=== PATIENT | male | born 1960 | race Caucasian/White ===

== ENCOUNTER 2021-04-17 09:43 | Outpatient (CLI) | payer MEDICARE, SELFPAY ==
--- NOTE | 2021-04-17 | EST_ITS ---
Patient Info Name: Yessenia Pereira Age: 61 years : 1960 Gender: Male Ht: 72 in Wt: 246 lbs BSA: 2.41 m2 Exam Date: 04/17/2021 11:17 AM Exam Location: [facility] Stress Patient Status: Outpatient Admit Date: 04/17/2021 Staff Ordering Physician: GRACIA PARTIDA MD Attending Provider: GRACIA PARTIDA MD Exercise Technologist: Kacie Pope RDCS Exercise Physician: Sree Amezquita MD Exam Type: CA stress test treadmill Study Info Indications I10 - Essential (primary) hypertension A treadmill exercise stress test was performed. Summary 1. Sub maximal workload as patient only reached 111 beats per minute which is 70% of maximum predicted heart rate for age. Mets 4.7. 2. Test was terminated due to marked hypertensive blood pressure response as well as leg pain from severe previous orthopedic issues with his right knee. 3. No chest pain or diagnostic ST segment abnormality seen at this sub maximal workload. Protocol: [facility] Stress ECG Details Stage: REST Duration (min): 1 min : 59 sec Speed (mph): 0.0 Grade (%): 0 HR (bpm): 60 SBP (mmHg): 159 DBP (mmHg): 77 METS: --- Stage: REST Duration (min): 9 min : 14 sec Speed (mph): 0.0 Grade (%): 0 HR (bpm): 76 SBP (mmHg): 159 DBP (mmHg): 77 METS: --- Stage: STAGE 1 Duration (min): 1 min : 0 sec Speed (mph): 1.7 Grade (%): 10 HR (bpm): 91 SBP (mmHg): 159 DBP (mmHg): 77 METS: --- Stage: STAGE 1 Duration (min): 2 min : 0 sec Speed (mph): 1.7 Grade (%): 10 HR (bpm): 103 SBP (mmHg): 159 DBP (mmHg): 77 METS: --- Stage: STAGE 1 Duration (min): 3 min : 0 sec Speed (mph): 1.7 Grade (%): 10 HR (bpm): 110 SBP (mmHg): 193 DBP (mmHg): 102 METS: --- Stage: STAGE 2 Duration (min): 0 min : 13 sec Speed (mph): 0.0 Grade (%): 0 HR (bpm): 110 SBP (mmHg): 193 DBP (mmHg): 102 METS: --- Stage: RECOVERY Duration (min): 0 min : 46 sec Speed (mph): 0.0 Grade (%): 0 HR (bpm): 91 SBP (mmHg): 193 DBP (mmHg): 102 METS: --- Stage: RECOVERY Duration (min): 1 min : 46 sec Speed (mph): 0.0 Grade (%): 0 HR (bpm): 69 SBP (mmHg): 238 DBP (mmHg): 93 METS: --- Stage: RECOVERY Duration (min): 2 min : 46 sec Speed (mph): 0.0 Grade (%): 0 HR (bpm): 62 SBP (mmHg): 238 DBP (mmHg): 93 METS: --- Stage: RECOVERY Duration (min): 3 min : 46 sec Speed (mph): 0.0 Grade (%): 0 HR (bpm): 67 SBP (mmHg): 200 DBP (mmHg): 71 METS: --- Stage: RECOVERY Duration (min): 4 min : 46 sec Speed (mph): 0.0 Grade (%): 0 HR (bpm): 70 SBP (mmHg): 200 DBP (mmHg): 71 METS: --- Stage: RECOVERY Duration (min): 5 min : 14 sec Speed (mph): 0.0 Grade (%): 0 HR (bpm): 72 SBP (mmHg): 195 DBP (mmHg): 74 METS: --- Rest HR: 76 bpm Peak HR: 111 bpm Rest Sys
== END 2021-04-17 09:44 | disposition home or self-care (01) ==
PROVIDERS: PCP Internal Medicine
DX: I25.10 Atherosclerotic heart disease of native coronary artery without angina pectoris (principal); I10 Essential (primary) hypertension; I25.5 Ischemic cardiomyopathy
CPT/HCPCS: 93017

== ENCOUNTER 2021-08-04 09:45 | Outpatient (RCR) | payer MEDICARE, SELFPAY ==
[2021-05-13 11:57] VITALS: PULSE 59
== END 2021-08-04 14:00 | disposition home or self-care (01) ==
LOC: ANHCPREHAB 09:45
PROVIDERS: PCP Internal Medicine
DX: I25.2 Old myocardial infarction (principal)
CPT/HCPCS: 93798

== ENCOUNTER 2025-08-09 01:05 | Day surgery (SDC) | payer MEDICARE, SELFPAY ==
--- OUTSIDE RECORDS SUMMARY | 2005-02-06 04:30 | XMS_ITS | Continuity of Care Document ---
Author Organization [facility] Address [address] [place] [address] Phone Care Team Providers Care Mail Superintendent Name Role Phone Tonja Gooden Unavailable Unavailable Advance Directives Directive Yes / No Effective Date File Name No Information Encounters Encounter Description Practice Location Reason(s) For Visit Diagnoses Date Provider Providers Copied on Encounter [facility], [address], [place], [place], [id number], [place] tel:[phone] [facility] No Information [address]. [address] , [address], [place], [address], [place]. tel:[phone] Family History Family Member Type Diagnosis Age At Onset No Information Payers Payer name Insurance type Covered constitution party ID Authoriza tion(s) No Information Social History Type Description Quantity Date Captured Comments Sex Male Smoking Status No Information Chief Complaint And Reason For Visit No Information Reason For Referral Reason For Referral No Information History Of Present Illness Encounter Date Complaint History Of Prese nt Illness No Information Functional Status Date Functional Assessmen t No Information Instructions Date Instruction Additional Infor mation No Information Assessments Type Assessment Date No Information Patient Care Teams Name Effective Dates (start - stop) Status Members No Information
[2025-08-01 12:53] VITALS: BMI 32.1
--- OUTSIDE RECORDS SUMMARY | 2025-08-09 01:08 | XMS_ITS | Clinical Summary ---
Author Organization [facility] Address [address] [place] [address] Care Team Providers Care Cone Worker Name Role Phone Unavailable Primary Care Provider Unavailabl e Source Comments [facility],non-owned Affiliates and Associated Physician Practices is amultiple site organization consisting of ambulatory clinics and hospital sitesin [place], [place], [place] and [place]. This disclosure is being madepursuant to the Care Everywhere program and may not contain all information available regarding this patient. Last updated 18.[facility] Social History Tobacco Use Types Packs/Day Years Used Date Smoking Tobacco: Never Assessed Comments Unknown Sex and Gender Information Value Date Recorded Sex Assigned at Not on file Legal Sex Female 4:00 PM CDT Gender Identity Not on file Sexual Orientation Not on file Plan of Treatment Health Maintenance Due Date Last Done Comments BONE DENSITY TESTING 1960 COLOGUARD (AGES 45-75) - COL ON CA SCREENING 1960 COLON MONITORING 1960 COLONOSCOPY - COLON CA SCREENING 1960 CT COLONOGRAPHY - COLON CA SCREENING 1960 Colorectal Cancer Screening 1960 FIT - COLON CA SCREENING 1960 FLEX SIG - COLON CA SCREENING 1960 LIPID TESTING 1960 MAMMOGRAM 1960 HEPATITIS C SCREENING 12/27/1976 DTAP/TDAP/TD VACCINES (1 - Tdap) 1978 PNEUMOCOCCAL VACCINE 50+ (1 of 1 - PCV) 2009 ZOSTER VACCINE (1 of 2) 2009 DEPRESSION SCREENING 10/25/2024 MEDICARE AWV CALENDAR YEAR 2024 COVID-19 VACCINE (1 - 2023-2 5 season) 2025 INFLUENZA VACCINE (#1) 2025 Respiratory Syncytial Virus (RSV) Vaccine Pt: or over 60 yrs (1 - 1-dose 75+ series) 2034 HEPATITIS B VACCINE Aged Out No longe r eligible based on patient's age to complete this topic HIB VACCINE Aged Out No longer eligi ble based on patient's age to complete this topic HPV VACCINE Aged Out No longer eligi ble based on patient's age to complete this topic MENINGOCOCCAL (Group B) VACC INE SHARED DECISION-MAKING Aged Out No longer eligibl e based on patient's age to complete this topic MENINGOCOCCAL GROUPS A/C/Y/W VACCINE Aged Out No longer eligible b ased on patient's age to complete this topic Insurance MANAGED MEDICARE ADV
--- OUTSIDE RECORDS SUMMARY | 2025-08-09 01:08 | XMS_ITS | Clinical Summary ---
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 Role Phone Alejandro Buckley MD Primary Care Provider [phone] Allergies No known active allergies Medications aspirin 81 mg chewable tablet Take 1 tablet (81 mg total) by mouth daily 90 tablet 2 09/22/20 21 Active Farxiga 5 mg tablet TAKE 1 TABLET(5 MG) BY MOUTH DAILY 90 tablet 1 02/11/20 24 Active Additional Information Patient taking differently:5 mg oral Daily,Taking every other day, Reported on 07/12/2025 levoFLOXacin (LEVAQUIN) 250 mg tablet Take 1 tablet (250 mg total) by mouth daily 90 tablet 3 08/31/20 24 Active carvediloL (COREG) 12.5 mg tablet Take 1 tablet (12.5 mg total) by mouth 2 (two) times a day with meals 180 tablet 3 07/12/20 25 Active telmisartan (MICARDIS) 80 mg tablet Take 1 tablet (80 mg total) by mouth daily 90 tablet 3 07/12/20 25 Active amLODIPine (NORVASC) 5 mg tablet TAKE 1 TABLET(5 MG) BY MOUTH DAILY 90 tablet 2 08/03/20 25 Active atorvastatin (LIPITOR) 80 mg tablet TAKE 1 TABLET(80 MG) BY MOUTH DAILY 90 tablet 2 08/03/20 25 Active telmisartan (MICARDIS) 80 mg tablet Take 1 tablet (80 mg total) by mouth daily 90 tablet 3 08/31/20 24 025 Discontinued(Re order) atorvastatin (LIPITOR) 80 mg tablet Take 1 tablet (80 mg total) by mouth daily 90 tablet 3 08/31/20 24 025 Discontinued(Re order) amLODIPine (NORVASC) 5 mg tablet Take 1 tablet (5 mg total) by mouth daily 90 tablet 3 08/31/20 24 025 Discontinued(Re order) carvediloL (COREG) 12.5 mg tablet TAKE 1 TABLET(12.5 MG) BY MOUTH TWICE DAILY WITH MEALS 180 tablet 3 05/02/20 25 025 Discontinued(Re order) amLODIPine (NORVASC) 5 mg tablet Take 1 tablet (5 mg total) by mouth daily 90 tablet 3 07/12/20 25 025 Discontinued atorvastatin (LIPITOR) 80 mg tablet Take 1 tablet (80 mg total) by mouth daily 90 tablet 3 07/12/20 25 025 Discontinued Active Problems Problem Noted Date Diagnosed Date Abnormal thyroid ultrasound 01/15/2025 Assessment & Plan (03/14/2025 10:08 AM CDT): Followed by Dr. Diaz Coronary artery disease invo lving paiute-shoshone coronary artery of paiute-shoshone heart without angina pectoris 03/03/2024 Assessment & Plan (03/14/2025 10:08 AM CDT): No chest pain. Assessment & Plan (03/03/2024 8:38 AM CDT): Patient currently on high-dose statin, beta-blockers, and antiplatelet therapy. Remains asymptomatic. Encouraged diet exercise and weight loss Elevated PSA 05/01/2021 Assessment & Plan (03/03/2024 8:37 AM CDT): See above discussion will repeat PSA in 6 months Hematuria 05/01/2021 Assessment & Plan (03/03/2024 8:37 AM CDT): Follows with Urology. Urology also assist in following the elevated PSA. PSA has been stable. This is felt to be at least in part due to a markedly enlarged prostate. Localized enlarged lymph nodes 05/01/2021 Asymptomatic microscopic hematuria 03/17/2021 Assessment & Plan (03/14/2025 10:08 AM CDT): Stable. Assessment & Plan (03/17/2021 8:10 AM CDT): Has upcoming appointment with Urology. Pre-diabetes 03/17/2021 Assessment & Plan (03/14/2025 10:08 AM CDT): A1c stable continue diet control. Assessment & Plan (03/03/2024 8:37 AM CDT): A1c is stable. He remains on Farxiga. Have encouraged him to try to diet exercise and lose weight. Assessment & Plan (03/17/2021 8:11 AM CDT): A1c 5.8% in hospital. 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 Is on anti-platelet therapy, high-dose statin, Telly inhibitor, and beta-malcolm. He is to be enrolled in cardiac rehab and has upcoming appointment with cardiology. Will repeat lipid panel in 6 weeks and follow blood pressure closely. Polyuria 02/26/2021 Essential hypertension 07/17/2020 Assessment & Plan (03/03/2024 8:37 AM CDT): BP at target by my exam continue medication for target directed therapy Assessment & Plan (03/17/2021 8:10 AM CDT): Blood pressure today is not at target but he has not taken his medications yet this morning he reports his blood pressures at home are excellent. Will continue to monitor. 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 Given Keflex as outpatient with minimal improvement. Wound worsened and taken to OR on 12/01/17 for I&D with retainment of hardware (DAIR) and flap coverage on 12/06/17. OR cultures revealed polymicrobial infection with E. Cloacae, pseudomonas, peptiniphilus asaccharolyticus (peptostreptococcus). D/c with 5 weeks of cefepime and flagyl starting 12/06/17 (developed neutropenia and leukopenia), stopped 01/13/18. Started on Cipro/augmentin but switched to levofloxacin due to diarrhea. Suffered from some tendon pain so dose decreased to 500 mg daily. Assessment & Plan (03/03/2024 8:38 AM CDT): Previously followed also by Infectious Disease. Long discussion with them several years ago indicated that he should continue the levofloxacin for an undetermined indefinite length of time. Over time the dosage has been reduced to its current dose of 250 mg daily which he is tolerating well. Assessment & Plan (03/17/2021 8:10 AM CDT): Review Dr. Calles's node and communication from Dr. Calles's office. Will start the levofloxacin 250 mg daily. He currently is asymptomatic. Assessment & Plan (03/12/2021 10:36 AM CDT): - Right knee is without concern for recurrent infection. He is tolerating antibiotics well but recently had left heel pain around Achilles tendon. He has some mild swelling to area now but no tenderness to palpation. No concern for tendon rupture but could have inflammation of tendons due to custodial flouroquinolones. Discussed risk vs benefit of custodial antibiotics. Given his polymicrobial infection with likely limited surgical options if infection were to recur it was decided to decrease levofloxacin to 250 mg PO daily to see if this improves his symptoms. If he has worsening pain to left leg ultrasound should be obtained. He he has signs/symptoms of Achilles tendon rupture levofloxacin will need to be discontinued. He requests his antibiotics be managed by his primary care physician (Dr. Alejandro Buckley) therefore I communicated ID recommendations to him. Patient will follow up with ID as needed with concerns for questions regarding custodial antibiotics Assessment & Plan (07/17/2020 11:12 AM CDT): On chronic levofloxacin, discussed with Dr Calles. To continue indefinitely at this time. 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 Encouraged to call surgical team for concerns with wound or remaining sutures. - Discussed rationale for treatment, culture results, treatment plan, length of therapy, risk of recurrent infection, as well as signs/symptoms of recurrent infection (including but not limited to fevers/chills/night sweats, worsening pain/erythema/edema, changes to surgical site,etc) and to contact ID with any concerns - F/u with ortho as scheduled on 07/27/18 - F/u with ID in 6 months Osteoarthritis of right knee 11/18/2017 Knee pain 06/01/2017 Encounters Date Type Department Care Team Description 07/12/2025 1:45 PM CDT Office Visit [facility] Surgery [address] [place] [id number] Tyler Diaz MD Thyroid nodule (Primary Dx) 07/12/2025 10:30 AM CDT Office Visit [facility] Cardiology [address] 8th [place] [address] [place] [id number] Fausto Scott MD Coronary artery disease involving paiute-shoshone coronary artery of paiute-shoshone heart without angina pectoris (Primary Dx); Essential hypertension 07/09/2025 Results Follow-Up [facility] Cardiology [address] [facility] 8th [place] [address] [place] [address] Fausto Scott MD Transthoracic Echo (TTE) Complete W Doppler/CF 07/05/2025 8:47 AM CDT - 07/05/2025 11:59 PM CDT Hospital Encounter [facility] Cardiac Diagnostic Lab [address]th [place] [address] Fausot Scott MD Coronary artery disease involving paiute-shoshone coronary artery of paiute[place]shoshone heart without angina pectoris Discharge Disposition: Discharge to home or self care 07/05/2025 7:40 AM CDT - 07/05/2025 11:59 PM CDT Hospital Encounter [facility] [address] [place], [place] [id number] Bebeto thyroiditis Discharge Disposition: Discharge to home or self care 07/05/2025 Telephone [facility] [address] [place] [address] [place] [phone] Alejandro Buckley MD Request For Order(s) 06/27/2025 Telephone [facility] [address] [place] [address] [place] [phone] Alejandro Buckley MD samples 06/06/2025 Telephone [facility] [address] [place] [address] [place] [phone] Alejandro Buckley MD Colonoscopy from Last 3 Months Immunizations Immunization Administration Dates Next Due Influenza, Quadrivalent, Hilary l Culture-based MDCK, Preservative Free, Antibiotic Free, Intramuscular 07/10/2023,07/30/2022 Influenza, Quadrivalent, Spl it, Preservative Free, Intramuscular 07/06/2020 Influenza, Trivalent, High D ose, Split, Preservative Free, Intramuscular 07/10/2024 Influenza, Trivalent, IM (MDV) 07/12/2021 Influenza, Trivalent, Preservative Free, Intramu scular 09/06/2016 Moderna SARS-CoV-2 Monovalent Vaccination (12+ Y RS) 12/21/2020 Pfizer SARS-CoV-2 Monovalent Vaccination (12+ Yrs) PURPLE 07/15/2021 Pneumococcal Conjugate Pcv20 07/03/2022 RSV Vaccine, Pref, Recombina nt, Subunit, Adjuvanted, PF, IM (Arexvy) 08/10/2023 ZOSTER Recombinant 11/04/2022,06/17/2022 Surgical History Surgery Date Site/Laterality Comments REPLACEMENT TOTAL KNEE 10/28/2017 Right COLONOSCOPY PERIPHERALLY INSERTED CENTRAL CATHETER INSERTION ANKLE INCISION AND DRAINAGE Right knee debridement x2 SKIN GRAFT FULL THICKNESS LEG -12/2018 Right KNEE ARTHROSCOPY W/ MENISCAL REPAIR 10/25/1978 - 10/24/1979 Right CARDIAC SURGERY Medical History Medical History Date Comments Arthritis Hypertension has not started 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 Swab x2 done 08/21/2019 & 09/08/2019-->negative Urinary frequency Anxiety no meds Depression no meds Family History Medical History Relation Name Comments Hypertension Father Family history of hypertension - (Added by TW Conv) Lung disease Father Lung trouble - (Added by TW Conv) Cancer Mother Family history of malignant neoplasm - (Added by TW Conv) Relation Name Status Comments Father Mother Social History Tobacco Use Types Packs/Day Years Used Date Smoking Tobacco: Former Cigarettes 0.3 31.8 S tarted: 1993 Passive Smoke Exposure: Past Smokeless Tobacco: Never Tobacco Cessation:Counseling Given: Not Answered Comments:off and on-stopped for awhile then restared in 10/2018 Alcohol Use Standard Drinks/Week Comments Yes 0 (1 standard drink = 0.6 oz pur e alcohol) 2 drinks/year Sex and Gender Information Value Date Recorded Sex Assigned at Not on file 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 Gender Identity Not on file Sexual Orientation Not on file Obstetrics History Last Filed Vital Signs Vital Sign Reading Time Taken Comments Blood Pressure 114/67 07/12/2025 1:17 PM CDT Pulse 83 07/12/2025 1:17 PM CDT Temperature 36.4 C (97.6 F) 07/12/2025 1:17 PM CDT Respiratory Rate 18 07/12/2025 1:17 PM CDT Oxygen Saturation 99% 07/12/2025 1:17 PM CDT Inhaled Oxygen Concentration - - Weight 109.5 kg (241 lb 8 oz) 07/12/2025 1:17 PM CDT Height 180.3 cm (5' 11) 07/12/2025 10:23 AM CDT Body Mass Index 33.68 07/12/2025 10:23 AM CDT Plan of Treatment Health Maintenance Due Date Last Done Comments Depression Screening 1960 Hepatitis C Screening 1960 DTaP/Tdap/Td Vaccine (1 - Tdap) 1970 Hepatitis B Screening 1977 Fall Risk Assessment 03/07/2022 03/07/2021 Abdominal Aortic Aneurysm (AAA) Screen 01/02/2024 Well Visit 65+ 01/02/2024 07/17/2020 Covid-19 Vaccine ( season) 2025 07/25/2024, 07/27/2023, 02/09/2022, Additional history exists Influenza Vaccine (#1) 2025 , 07/10/2023, 07/30/2022, Additional history exists Prostate Cancer Screening-PSA 08/07/2027 08/07/2025, 08/17/2024, 02/17/2024, Additional history exists Colon Cancer Screening-Colonoscopy 07/18/2029 Postponed from 1960 (Not appropriate for this patient at this time) Pneumococcal vaccine 65+ Completed 07/03/2022 Zoster Vaccine Completed 11/04/2022, 06/17/2022 Medical Devices Implanted Type Area Diesel Service Technician Device Identifier Shelf Expiration Date Model / Serial / Lot [employer] [id number] Stent Coronary Drug Eluting Orsiro 3.0mm 35cm - [id number] Implanted:Qty : 1 on 03/06/2021 by Stephanie England MD at [facility] Stent Left: Coronary [employer] 11/27/2022 [id number] / / [id number] [employer] [id number] Angio-Seal Evolution 8fr .038in Guidewire Bypass Tube Suture - [id number] - [id number] Implanted:Qty : 1 on 03/06/2021 by Stephanie England MD at [facility] Stent Terrajoule Alison 11/24/2021 [id number] / [id number] / [id number] Procedures Procedure Name Priority Date/Time Associated Diagnosis Comments PSA SCREEN Routine 08/07/2025 9:56 AM CDT COMPREHENSIVE METABOLIC PANEL Routine 08/07/2025 9:56 AM CDT LIPID PANEL Routine 08/07/2025 9:56 AM CDT URINALYSIS AND REFLEX TO MICROSCOPIC Routine 08/07/2025 9:56 AM CDT TSH Routine 08/07/2025 9:56 AM CDT CBC WITH AUTO DIFFERENTIAL Routine 08/07/2025 9:56 AM CDT Health care maintenance TRANSTHORACIC ECHO (TTE) COMPLETE W DOPPLER/CF W CONTRAST Routine 07/05/2025 10:38 AM CDT Coronary artery disease involving paiute-shoshone coronary artery of pai[place]-shoshone heart without angina pectoris CT CHEST W CONTRAST Schedule Routine, Read Routine (OP Routine) 07/05/2025 8:38 AM CDT Bebeto thyroiditis from Last 3 Months Results * PSA screen (08/07/2025 9:56 AM CDT) PSA 3.53 < OR = 4.00 ng/mL [facility] Comment: The total PSA value from this assay system is standardized against the WHO standard. The test result will be approximately 20% lower when compared to the equimolar-standardized total PSA ([place]). Comparison of serial PSA results should be interpreted with this fact in mind. This test was performed using the Siemens chemiluminescent method. Values obtained from different assay methods cannot be used interchangeably. PSA levels, regardless of value, should not be interpreted as absolute evidence of the presence or absence of disease. 08/07/2025 9:56 AM CDT 08/07/2025 9:58 AM CDT Narrative [facility] - 08/08/2025 4:06 AM CDT FASTING:YES FASTING: YES Alejandro Buckley MD LAB BLOOD ORDERABLES Final Re sult Performing Organization Address [facility] Co de Phone Number [facility] [address] [place] [address] * (ABNORMAL) Urinalysis reflex to microscopic (08/07/2025 9:56 AM CDT) Color, ur YELLOW YELLOW [facility] Appearance, ur CLEAR CLEAR [facility] Specific gravity 1.025 1.001 - 1.035 [facility] pH, ur 5.5 5.0 - 8.0 [facility] Glucose, ur 3+(A) NEGATIVE [facility] Bilirubin, ur NEGATIVE NEGATIVE [facility] Ketones, ur NEGATIVE NEGATIVE [facility] Blood, ur NEGATIVE NEGATIVE [facility] Protein, ur, quant NEGATIVE NEGATIVE [facility] Nitrites, ur NEGATIVE NEGATIVE [facility] Leukocyte esterase, ur NEGATIVE NEGATIVE [facility] 08/07/2025 9:56 AM CDT 08/07/2025 9:58 AM CDT Narrative [facility] - 08/08/2025 4:06 AM CDT FASTING:YES FASTING: YES Alejandro Buckley MD LAB URINE ORDERABLES Final Re sult Performing Organization Address [facility] de Phone Number [facility] [address] [place] [address] * (ABNORMAL) CBC with auto differential (08/07/2025 9:56 AM CDT) WBC 7.7 3.8 - 10.8 Thousand/u L [facility] RBC, POC 4.90 4.20 - 5.80 Million/uL [facility] Hgb 13.0(L) 13.2 - 17.1 g/dL [facility] Hct 42.1 38.5 - 50.0 % [facility] MCV 85.9 80.0 - 100.0 fL [facility] MCH 26.5(L) 27.0 - 33.0 pg [facility] MCHC 30.9(L) 32.0 - 36.0 g/dL [facility] Comment: For adults, a slight decrease in the calculated MCHC value (in the range of 30 to 32 g/dL) is most likely not clinically significant; however, it should be interpreted with caution in correlation with other red cell parameters and the patient's clinical condition. Rdw 13.7 11.0 - 15.0 % [facility] Platelets 181 140 - 400 Thousand/u L [facility] MPV 12.3 7.5 - 12.5 fL [facility] Neutrophils, abs 4,959 1,500 - 7,800 cells/uL [facility] Lymphocytes, abs 2,241 850 - 3,900 cells/uL [facility] Monocyte abs 393 200 - 950 cells/uL [facility] Eosinophils, abs 77 15 - 500 cells/uL [facility] Basophils, abs 31 0 - 200 cells/uL [facility] Neutrophils 64.4 % [facility] Lymphocyte pct 29.1 % [facility] Monocytes 5.1 % [facility] Eosinophils 1.0 % [facility] Basophils 0.4 % [facility] Blood 08/07/2025 9:56 AM CDT 08/07/2025 9:58 AM CDT Narrative [facility] - 08/08/2025 4:06 AM CDT FASTING:YES FASTING: YES us Alejandro Buckley MD LAB BLOOD ORDERABLES Final Re sult [facility] [address] [place] [address] * TSH (08/07/2025 9:56 AM CDT) TSH 0.70 0.40 - 4.50 mIU/L [facility] 08/07/2025 9:56 AM CDT 08/07/2025 9:58 AM CDT Narrative [employer] - 08/08/2025 4:06 AM CDT FASTING:YES FASTING: YES us Alejandro Buckley MD LAB BLOOD ORDERABLES Final Re sult Performing Organization Address [facility] Co de Phone Number [facility] [address] [place] [address] * (ABNORMAL) Lipid panel (08/07/2025 9:56 AM CDT) [facility] Cholesterol 73 <200 mg/dL [employer] [facility] HDL 34(L) > OR = 40 mg/dL [facility] Triglycerides 80 <150 mg/dL [facility] LDL 23 mg/dL (calc) [facility] Comment: Reference range: <100 Desirable range <100 mg/dL for primary prevention; <70 mg/dL for patients with CHD or diabetic patients with > or = 2 CHD risk factors. LDL-C is now calculated using the Jass calculation, which is a validated novel method providing better accuracy than the Friedewald equation in the estimation of LDL-C. Frank ANSARI et al. ANTHONY. 2013;310(19): 2830-7205 (http://education.[employer]/faq/UZO814) Chol/HDL ratio 2.1 <5.0 (calc) [facility] Non-HDL, (LDL+VLDL) 39 <130 mg/dL (calc) [facility] Comment: For patients with diabetes plus 1 major ASCVD risk factor, treating to a non-HDL-C goal of <100 mg/dL (LDL-C of <70 mg/dL) is considered a therapeutic option. 08/07/2025 9:56 AM CDT 08/07/2025 9:58 AM CDT Narrative [facility] - 08/08/2025 4:06 AM CDT FASTING:YES FASTING: YES us Alejandro Buckley MD LAB BLOOD ORDERABLES Final Re sult Performing Organization Address [facility]/ZIP Co de Phone Number [facility] [address] [place] [address] * (ABNORMAL) Comprehensive metabolic panel (08/07/2025 9:56 AM CDT) Glucose 135(H) 65 - 99 mg/dL [facility] Comment: Fasting reference interval For someone without known diabetes, a glucose value >125 mg/dL indicates that they may have diabetes and this should be confirmed with a follow-up test. BUN 16 7 - 25 mg/dL [facility] Creatinine 0.99 0.70 - 1.35 mg/dL [facility] eGFR 84 > OR = 60 mL/min/1.7 3m2 [facility] BUN/creat ratio SEE NOTE: 6 - 22 (calc) [facility] Comment: Not Reported: BUN and Creatinine are within reference range. Sodium 143 135 - 146 mmol/L [facility] Potassium, pl 3.9 3.5 - 5.3 mmol/L [facility] Chloride 108 98 - 110 mmol/L [facility] CO2 28 20 - 32 mmol/L [facility] Calcium 9.1 8.6 - 10.3 mg/dL [facility] Protein, sr 6.4 6.1 - 8.1 g/dL [facility] Albumin 3.9 3.6 - 5.1 g/dL [facility] GLOBULIN 2.5 1.9 - 3.7 g/dL (calc) [facility] Alb/glob ratio 1.6 1.0 - 2.5 (calc) [facility] Bilirubin, total 0.9 0.2 - 1.2 mg/dL [facility] Alk phos 103 35 - 144 U/L [email or web address] AST 11 10 - 35 U/L [facility] ALT (SGPT) 13 9 - 46 U/L [facility] 08/07/2025 9:56 AM CDT 08/07/2025 9:58 AM CDT Narrative [facility] - 08/08/2025 4:06 AM CDT FASTING:YES FASTING: YES Alejandro Buckley MD LAB BLOOD ORDERABLES Final Re sult [facility] [address] [place] [address] * TRANSTHORACIC ECHO (TTE) COMPLETE W DOPPLER/CF W CONTRAST (07/05/2025 10:38 AM CDT) EF Mod BP 60 % CONS SCIMAGE Anatomical Region Laterality Modality Ultrasound 07/05/2025 9:49 AM CDT Narrative 07/06/2025 5:44 PM CDT LOCATED WITHIN [facility] [place] [address] Transthoracic Echocardiographic Report Patient Name: YESSENIA LAWTON R : 1960 (65y 6m) Sex: M Study Date: 07/05/2025 09:49:22 AM Ht(Inch): 69 Wt(Lb): 242.95 BSA: 2.32 Adult Educator: Sherine Jean [facility] Location: LOCATED WITHIN [facility] Order Provider: FAUSTO SCOTT Heart Rate: 61 BMI: 35.87 BP: 138 / 61 Ref Provider: FAUSTO SCOTT Fellow: Jassi Estevez MD PROCEDURES: Echocardiographic Report: Transthoracic complete echo with strain imaging and contrast, 2D, spectral and tissue Doppler, color flow Doppler, M-mode. Contrast: Contrast Enhancement was Employed: Due to suboptimal image quality with inadequate visualization of at least 2 of 16 LV wall segments in any view after initial imaging. Perflutren contrast was administered using the volume necessary to obtain adequate images. 0.8 ml Optison Administered, (2.2 ml wasted). INDICATIONS: I25.10 Atherosclerotic heart disease of pai[place]-shoshone coronary artery without angina pectoris. CONCLUSIONS: 1. Normal left ventricular size based on volume index. Normal LV wall thickness. Normal left ventricular systolic function. The Ejection Fraction (Lorenzo's) is measured at 60 %. Grade I diastolic dysfunction (normal LA pressure). The average global longitudinal strain is abnormal. A false tendon is seen in the left ventricle, a normal finding. 2. Resting Segmental Wall Motion Analysis: Total wall motion score is 1.12. There is hypokinesis of the mid anteroseptal wall. There is hypokinesis of the apical septal wall. The remaining left ventricular segments demonstrate normal wall motion. 3. Mildly dilated left atrium. 4. There is no significant valvular heart disease. COMPARISONS: No change compared to prior study on: 10/07/2022. ATTESTATION: I have personally reviewed and interpreted this study without fellow or resident. Fellow that participated in the exam is Jassi Estevez MD. DISCLAIMER: The study images and the final report will be retained in the patient chart by the [facility] for the legally required time period. This chart constitutes the legal record of any testing performed. FINDINGS: Left Ventricle: Normal left ventricular size based on volume index. Normal LV wall thickness. Normal left ventricular systolic function. The Ejection Fraction (Lorenzo's) is measured at 60 %. Grade I diastolic dysfunction (normal LA pressure). The average global longitudinal strain is abnormal. The LV global strain is: -15.6 %. A false tendon is seen in the left ventricle, a normal finding. Resting Segmental Wall Motion Analysis: Total wall motion score is 1.12. There is hypokinesis of the mid anteroseptal wall. There is hypokinesis of the apical septal wall. The remaining left ventricular segments demonstrate normal wall motion. Right Ventricle: Normal right ventricular size. Normal right ventricular systolic function. Left Atrium: Mildly dilated left atrium. Right Atrium: The right atrium is normal in size. Atrial Septum: Normal interatrial septum. Mitral Valve: Normal mitral valve structure. Trace mitral valve regurgitation. No stenosis present. Aortic Valve: Trileaflet aortic valve. Mildly thickened aortic valve leaflets. No aortic regurgitation. No aortic valve stenosis. Tricuspid Valve: Normal tricuspid valve structure. Trace tricuspid regurgitation. No tricuspid valve stenosis. Pulmonic Valve: The pulmonic valve is not well visualized due to poor acoustic windows. Mild pulmonic regurgitation. No pulmonic valve stenosis present. Pericardium: Physiologic pericardial effusion. Aorta: Normal aortic root size when indexed. The ascending aorta is normal in size when indexed. IVC: The IVC was <2.1 cm and collapsibility >50%. (est. RA pressure 0-5 mmHg). PASP: Unable to determine PASP due to inadequate TR jet. Rhythm: Occasional atrial premature contractions noted during the exam. MEASUREMENTS: 2D/MM Value Range Doppler Value Range LVIDd 2D 5.64 cm [ 4.20 - 5.80 ] AV VTI 33.2 cm LVIDs 2D 3.86 cm [ 2.50 - 4.00 ] LVOT VTI 24.7 cm IVSd 2D 0.97 cm [ 0.60 - 1.00 ] FARHAN VTI 2.18 cm2 LVPWd 2D 1.00 cm [ 0.60 - 1.00 ] LVOT/AV VTI 0.74 - Dimensionless index (DVI) LV Thickness Ratio 1.0 MV E Peak Semaj 0.7 m/s [ 0.6 - 1.3 ] RWT 0.35 MV A Peak Semaj 0.9 m/s [ 1.0 - 1.2 ] EDV Mod BP 169.00 ml [ 62.00 - 150.00 ] MV E/A 0.8 ratio [ 0.8 - 1.5 ] LV EDV Index 72.96 ml/m2 MV VTI 32.4 cm ESV Mod BP 67.00 ml [ 21.00 - 61.00 ] Med E` Semaj 5.9 cm/sec [ 8.0 - 25.0 ] EF Mod BP 60 % [ 52 - 72 ] Lat E` Semaj 8.8 cm/sec [ 10.0 - 25.0 ] LV GLS -15.6 % [ -25.0 - -18.0 ] Average E/E` 9.52 LA Volume BP 82.06 ml RV S` 10.25 cm/sec LA Volume Index 35.43 ml/m2 [ 16.00 - 34.00 ] RV Base Dimen 2D 3.9 cm [ 2.5 - 4.2 ] TAPSE 2.17 cm [ 1.71 - 5.00 ] RA Volume 46.19 ml RA Volume Index 19.94 ml/m2 IVC Diam 2.04 cm IVC Collapse 51 % AoR Diam 2D 3.50 cm [ 3.10 - 3.70 ] Ao Root Index 1.51 cm/m2 [ 1.00 - 2.00 ] Asc Ao Diam 2D 3.47 cm Asc Ao Index 1.50 cm/m2 Electronically Signed By: Columba Garcia MD 07/06/2025 5:43:23 PM CDT CC: Fausto Scott MD Wall Motion Analysis - Resting Procedure Note De oClumba Enamorado MD - 07/06/2025 LOCATED WITHIN [facility] [place] [place] [address] Transthoracic Echocardiographic Report Patient Name: YESSENIA LAWTON R : 1960 (65y 6m) Sex: M Study Date: 07/05/2025 09:49:22 AM Ht(Inch): 69 Wt(Lb): 242.95 BSA: 2.32 Adult Educator: Sherine Jean [facility] Location: LOCATED WITHIN [facility] Order Provider:FAUSTO SCOTT Heart Rate: 61 BMI: 35.87 BP: 138 / 61 Ref Provider: FAUSTO SCOTT Fellow: Jassi Estevez MD PROCEDURES: Echocardiographic Report: Transthoracic complete echo with strain imagingand contrast, 2D, spectral and tissue Doppler, color flow Doppler, M-mode. Contrast: Contrast Enhancement was Employed: Due to suboptimal imagequality with inadequate visualization of at least 2 of 16 LV wall segments in any viewafter initial imaging. Perflutren contrast was administered using the volume necessaryto obtain adequate images. 0.8 ml Optison Administered, (2.2 ml wasted). 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 CONCLUSIONS: 1. Normal left ventricular size based on volume index. Normal LV wallthickness. Normal left ventricular systolic function. The Ejection Fraction (Lorenzo's) ismeasured at 60 %. Grade I diastolic dysfunction (normal LA pressure). The average globallongitudinal strain is abnormal. A false tendon is seen in the left ventricle, a normalfinding. 2. Resting Segmental Wall Motion Analysis: Total wall motion score is1.12. There is hypokinesis of the mid anteroseptal wall. There is hypokinesis of theapical septal wall. The remaining left ventricular segments demonstrate normal wall motion. 3. Mildly dilated left atrium. 4. There is no significant valvular heart disease. COMPARISONS: No change compared to prior study on: 10/07/2022. ATTESTATION: I have personally reviewed and interpreted this study without fellow orresident. Fellow that participated in the exam is Jassi Estevez MD. DISCLAIMER: The study images and the final report will be retained in the patientchart by the Echo Laboratory for the legally required time period. This chart constitutesthe legal record of any testing performed. FINDINGS: Left Ventricle: Normal left ventricular size based on volume index. NormalLV wall thickness. Normal left ventricular systolic function. The EjectionFraction (Lorenzo's) is measured at 60 %. Grade I diastolic dysfunction (normal LA pressure).The average global longitudinal strain is abnormal. The LV global strain is: -15.6 %.A false tendon is seen in the left ventricle, a normal finding. Resting Segmental Wall Motion Analysis: Total wall motion score is 1.12.There is hypokinesis of the mid anteroseptal wall. There is hypokinesis of theapical septal wall. The remaining left ventricular segments demonstrate normal wall motion. Right Ventricle: Normal right ventricular size. Normal right ventricularsystolic function. Left Atrium: Mildly dilated left atrium. Right Atrium: The right atrium is normal in size. Atrial Septum: Normal interatrial septum. Mitral Valve: Normal mitral valve structure. Trace mitral valveregurgitation. No stenosis present. Aortic Valve: Trileaflet aortic valve. Mildly thickened aortic valveleaflets. No aortic regurgitation. No aortic valve stenosis. Tricuspid Valve: Normal tricuspid valve structure. Trace tricuspidregurgitation. No tricuspid valve stenosis. Pulmonic Valve: The pulmonic valve is not well visualized due to pooracoustic windows. Mild pulmonic regurgitation. No pulmonic valve stenosis present. Pericardium: Physiologic pericardial effusion. Aorta: Normal aortic root size when indexed. The ascending aorta is normalin size when indexed. IVC: The IVC was <2.1 cm and collapsibility >50%. (est. RA pressure 0-5mmHg). PASP: Unable to determine PASP due to inadequate TR jet. Rhythm: Occasional atrial premature contractions noted during the exam. MEASUREMENTS: 2D/MM Value Range DopplerValue Range LVIDd 2D 5.64 cm [ 4.20 - 5.80 ] AV VTI33.2 cm LVIDs 2D 3.86 cm [ 2.50 - 4.00 ] LVOT VTI24.7 cm IVSd 2D 0.97 cm [ 0.60 - 1.00 ] FARHAN VTI2.18 cm2 LVPWd 2D 1.00 cm [ 0.60 - 1.00 ] LVOT/AV VTI0.74 - Dimensionless index (DVI) LV Thickness Ratio 1.0 MV E Peak Vel0.7 m/s [ 0.6 - 1.3 ] RWT 0.35 MV A Peak Vel0.9 m/s [ 1.0 - 1.2 ] EDV Mod BP 169.00 ml [ 62.00 - 150.00 ] MV E/A0.8 ratio [ 0.8 - 1.5 ] LV EDV Index 72.96 ml/m2 MV VTI32.4 cm ESV Mod BP 67.00 ml [ 21.00 - 61.00 ] Med E` Vel5.9 cm/sec [ 8.0 - 25.0 ] EF Mod BP 60 % [ 52 - 72 ] Lat E` Vel8.8 cm/sec [ 10.0 - 25.0 ] LV GLS -15.6 % [ -25.0 - -18.0 ] Average E/E`9.52 LA Volume BP 82.06 ml RV S`10.25 cm/sec LA Volume Index 35.43 ml/m2 [ 16.00 - 34.00 ] RV Base Dimen 2D 3.9 cm [ 2.5 - 4.2 ] TAPSE 2.17 cm [ 1.71 - 5.00 ] RA Pklovi16.19 ml RA Volume Index19.94 ml/m2 IVC Diam2.04 cm IVC Collapse 51 % AoR Diam 2D 3.50 cm [ 3.10 - 3.70 ] Ao Root Index 1.51 cm/m2 [ 1.00 - 2.00 ] Asc Ao Diam 2D3.47 cm Asc Ao Index1.50 cm/m2 Electronically Signed By: Columba Garcia MD 07/06/2025 5:43:23 PM CDT CC: Fausto Scott MD Wall Motion Analysis - Resting us Fausto Scott MD CV ECHO PROCEDURES Final Resu lt * CT Chest W Contrast (07/05/2025 8:38 AM CDT) Anatomical Region Laterality Modality Body N/A Computed Tomogra phy 07/05/2025 9:30 AM CDT Impressions 07/05/2025 9:30 AM CDT 1. No evidence of metastatic disease in the chest. 2. No significant interval change in appearance of an enlarged multinodular thyroid, though direct comparison is limited by noncontrast technique on the prior chest CT. Electronically signed by: Abdelrahman Cruz M.D. Narrative 07/05/2025 9:30 AM CDT EXAMINATION: Computed tomography of the chest with intravenous contrast HISTORY: Thyroid cancer; monitor. TECHNIQUE: Transaxial computed tomographic images of the chest were obtained with intravenous contrast according to the standard protocol after the administration of 90 mL Opti-Ray 350 intravenous contrast. COMPARISON: Chest CT dated 11/14/2024 FINDINGS: There is no consolidation, pleural effusion, or pneumothorax. No suspicious pulmonary nodule is identified. The heart size is normal without pericardial effusion. The thoracic aorta is normal in caliber. There is a redemonstrated enlarged multinodular thyroid, overall similar in appearance from prior though direct comparison is limited by noncontrast technique on the prior CT; the largest thyroid nodule in the left hemithyroid measures 2.4 cm. No pathologically enlarged thoracic lymph node is identified. Within the upper abdomen, the imaged portions of the liver, gallbladder, spleen, pancreas, and adrenal glands are normal. No aggressive osseous lesion is identified. Procedure Note Abdelrahman Cruz MD PhD - 07/05/2025 EXAMINATION: Computed tomography of the chest with intravenous contrast HISTORY: Thyroid cancer; monitor. TECHNIQUE: Transaxial computed tomographic images of the chest were obtained with intravenous contrast according to the standard protocol after the administration of 90 mL Opti-Ray 350 intravenous contrast. COMPARISON: Chest CT dated 11/14/2024 FINDINGS: There is no consolidation, pleural effusion, or pneumothorax. No suspicious pulmonary nodule is identified. The heart size is normal without pericardial effusion. The thoracic aorta is normal in caliber. There is a redemonstrated enlarged multinodular thyroid, overall similar in appearance from prior though direct comparison is limited by noncontrast technique on the prior CT; the largest thyroid nodule in the left hemithyroid measures 2.4 cm. No pathologically enlarged thoracic lymph node is identified. Within the upper abdomen, the imaged portions of the liver, gallbladder, spleen, pancreas, and adrenal glands are normal. No aggressive osseous lesion is identified. IMPRESSION: 1. No evidence of metastatic disease in the chest. 2. No significant interval change in appearance of an enlarged multinodular thyroid, though direct comparison is limited by noncontrast technique on the prior chest CT. Electronically signed by: Abdelrahman Cruz M.D. Tyler Diaz MD IM CT PROCEDURES Final Result from Last 3 Months Insurance [facility] AETNA SIGNATURE [facility] [employer] ADVANTAGE [place] [id number] UHC MEDICARE ADVANTAGE UHC MEDICARE ADVANTAGE Advance Directives For more information, please contact: [phone] * Full Code (Latest Code Status on File) Date Activated Date Inactivated Comments 03/06/2021 8:05 AM 03/07/2021 5:03 PM Care Teams Radial Arm Saw Operator Relationship Specialty Start Date End Date Alejandro Buckley MD PCP - General Internal Medicine 07/17/20
--- OUTSIDE RECORDS SUMMARY | 2025-08-09 01:08 | XMS_ITS | Encounter Summary ---
Author Organization [facility] Healthcare Address [address] [place] [address] Care Team Providers Care New Car Make Ready Mechanic Name Role Phone Alejandro Buckley MD Primary Care Provider [phone] Encounter Details Date Type Department Care Team (Late st Contact Info) Description 09/25/2021 Telephone [facility] Radiology [address] [place] [address] [place], [address] [place] [address] Social History Tobacco Use Types Packs/Day Years Used Date Smoking Tobacco: Former Cigarettes 0.3 31.8 S tarted: 1993 Smokeless Tobacco: Never Comments:off and on-stopped for awhile then restared in 10/2018 Alcohol Use Standard Drinks/Week Comments Yes 0 (1 standard drink = 0.6 oz pur e alcohol) 2 drinks/year Sex and Gender Information Value Date Recorded Sex Assigned at Not on file Legal Sex Male 11:52 AM RHIT Gender Identity Not on file Sexual Orientation Not on file documented as of this encounter Plan of Treatment Not on file documented as of this encounter Visit Diagnoses Not on filedocumented in this encounter Care Teams New Car Make Ready Mechanic Relationship Specialty Start Date End Date Alejandro Buckley MD PCP - General Internal Medicine 07/17/20 documented as of this encounter
--- OUTSIDE RECORDS SUMMARY | 2025-08-09 01:08 | XMS_ITS | Encounter Summary ---
Author Organization [facility] Address [address] [place] [address] Care Team Providers Care Aerospace Quality Engineer Name Role Phone Unavailable Primary Care Provider Unavailabl e Encounter Details Date Type Department Care Team (Late st Contact Info) Description 06/23/2023 Lab Requisition [facility] - DermPath Lab [address] [place] [id number] Alton Lopez [place] [address] Social History Tobacco Use Types Packs/Day Years Used Date Smoking Tobacco: Never Assessed Comments Unknown Sex and Gender Information Value Date Recorded Sex Assigned at Not on file Legal Sex Female 4:00 PM CDT Gender Identity Not on file Sexual Orientation Not on file documented as of this encounter Plan of Treatment Not on file documented as of this encounter Procedures Procedure Name Priority Date/Time Associated Diagnosis Comments DERMATOPATHOLOGY Routine 06/22/2023 12:0 0 AM CDT documented in this encounter Results * DERMATOPATHOLOGY (06/22/2023 12:00 AM CDT) Case Report Dermatopathology Report Case: [id number] Authorizing Provider: Alton Lopez MD Collected: 06/22/2023 12:00 AM Ordering Location: [facility] DermPath Lab Received: 06/24/2023 07:20 AM Pathologist: Vee Mejía MD Specimens: A) - Skin, right sup deltoid B) - Skin, right upper lat back behind shoulder 3:30 PM CDT DERMATOPATHOLOGY LABORATORY Final Diagnosis Specimen A. SKIN, right sup deltoid: BENIGN VERRUCOUS KERATOSIS, INFLAMED (L82.1) Specimen B. SKIN, right upper lat back behind shoulder: BENIGN VERRUCOUS KERATOSIS, INFLAMED (L82.1) 3 3:30 PM CDT DERMATOPATHOLOGY LABORATORY at 1530 CDT Clinical History A-B: R/O SCC 3:30 PM CDT DERMATOPATHOLOGY LABORATORY Gross Description Specimen A: Received is one formalin filled container labeled with the patient's name and designated right sup deltoid. The specimen consists of a shave biopsy measuring [id number] mm. Jar 0. Specimen B: Received is one formalin filled container labeled with the patient's name and designated right upper lat back behind shoulder. The specimen consists of a shave biopsy measuring [id number] mm. Jar 0. 3:30 PM CDT DERMATOPATHOLOGY LABORATORY Microscopic Description Specimen A. SKIN, right sup deltoid: Sections show hyperkeratosis, papillomatosis, hypergranulosis, and acanthosis. Inflammatory cells are present within the dermis. These histological findings can be seen in a verruca vulgaris or a seborrheic keratosis. Specimen B. SKIN, right upper lat back behind shoulder: Sections show hyperkeratosis, papillomatosis, hypergranulosis, and acanthosis. Inflammatory cells are present within the dermis. These histological findings can be seen in a verruca vulgaris or a seborrheic keratosis. 3 3:30 PM CDT DERMATOPATHOLOGY LABORATORY Disclaimer An external and internal positive and negative controls are appropriate for the histochemical, immunohistochemical and immunofluorescence stain(s) in this case (if any), except where stated explicitly. The performance characteristics of the stain(s) cited in this report were developed and its performance characteristic determined by the Dermatopathology Laboratory at [facility], directed by Dr. Lizbet Reagan. These tests need not be, and therefore are not, approved by the [place] Food and Drug Administration. The tests are used for clinical purposes. Billing Codes Specimen Charges Stain Charges 12269 [id number] 1 1 3 3:30 PM CDT DERMATOPATHOLOGY LABORATORY Embedded Images 3:30 PM CDT DERMATOPATHOLOGY LABORATORY Pathology/Cytology TISSUE SPECIMEN FROM SKIN / Unknown 06/22/2023 06/24/2023 7:20 AM CDT Miscellaneous samples (specimen) TISSUE SPECIMEN FROM SKIN / Unknown 06/22/2023 06/24/2023 7:20 AM CDT Alton Lopez MD LAB - PATHOLOGY/CYTOLOGY ORD ERABLES Final Result DERMATOPATHOLOGY LABORATORY [facility] - Department of Dermatology [facility] Specialized Medicine [address] [place] [address], [address] [phone] documented in this encounter Visit Diagnoses Not on filedocumented in this encounter
--- OUTSIDE RECORDS SUMMARY | 2025-08-09 01:08 | XMS_ITS | Encounter Summary ---
Author Organization [facility] Address [address] [place] [address] Phone Care Team Providers Care Animal Rehabilitator Name Role Phone Arnold Pearl MD Primary Care Provider Alejandro Buckley MD Primary Care Provider [phone] Encounter Details Date Type Department Care Team (Late st Contact Info) Description 12/18/2017 Orders Only [facility] ProviderJean Marie MD [address] [place] [id number] Social History Tobacco Use Types Packs/Day Years Used Date Smoking Tobacco: Never Assessed Sex and Gender Information Value Date Recorded Sex Assigned at Not on file Legal Sex Male 11:52 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 Historical Provider LAB BLOOD ORDERABLES Consuelo l Result documented in this encounter Visit Diagnoses Not on filedocumented in this encounter Care Teams Animal Rehabilitator Relationship Specialty Start Date End Date Arnold Pearl MD PCP - General 05/28/17 07/16/20 Alejandro Buckley MD PCP - General Internal Medicine 07/17/20 documented as of this encounter
--- NOTE | 2025-08-09 11:54 | ECG_ITS ---
Test Date: 2025-08-09 11:59:40 Measurements Intervals [place] Rate: 87 P: 37 MD: 184 QRS: 28 QRSD: 97 T: 31 QT: 387 QTc: 467 Interpretive Statements SINUS RHYTHM WITH INTERMITTENT ATRIAL TACHYCARDIA CANNOT R/O SEPTAL INFARCT, AGE INDETERMINATE ABNORMAL ECG No previous ECG available for comparison Electronically Signed On 08-09-2025 12:16:13 CDT by Luis Martinez D.O.
--- NOTE | 2025-08-09 12:00 | SUR.PREOP ---
Pt irregular heart rate. Dr. Mattson notified. He requested stat EKG
[2025-08-09 12:10] VITALS: BP 142/95; PULSE 77; RESP 16; TEMP 36.4; O2SAT 100
[2025-08-09] MEDS: LACTATED RINGERS 1,000 ML 150 ML IV CONT (12:21)
--- NOTE | 2025-08-09 12:27 | WPDANESEPPF ---
Anes - Initial Pre Proc Eval Procedure: Operation Date: 08/09/25 13:00 Proposed Procedures p Screening Colonoscopy - Lam Dunaway MD Date/Time: 08/09/25 12:27 Surgeon: Lam Dunaway MD Pre Op Diagnosis: Polyp of colon Patient Data Age: 65 Gender: M Height: 1.8 m Weight: 109.4 kg Last Vital Signs Temp 97.5 F L 08/09/25 12:10 Pulse 77 08/09/25 12:10 Resp 16 08/09/25 12:10 BP 142/95 H 08/09/25 12:10 Pulse Ox 100 08/09/25 12:10 O2 Del Method Room Air 08/09/25 12:10 Allergies Allergy/AdvReac Type Severity Reaction Status Date / Time No Known Allergies Allergy Verified 08/09/25 12:09 Home Medications ?Medication ?Instructions ?Recorded ?Confirmed ?Type levofloxacin 500 mg tablet 250 mg PO DAILY 08/25/19 08/09/25 History aspirin 81 mg tablet 81 mg PO DAILY 05/13/21 08/09/25 History atorvastatin 80 mg tablet 80 mg PO HS 05/13/21 08/09/25 History lisinopril 20 mg tablet 40 mg PO DAILY 05/13/21 08/01/25 History metoprolol tartrate 25 mg tablet 25 mg PO DAILY 05/13/21 08/01/25 History ticagrelor 90 mg tablet 90 mg PO Q12H 05/13/21 08/01/25 History amlodipine 5 mg tablet 5 mg PO DAILY 08/01/25 08/09/25 History carvedilol 12.5 mg tablet 12.5 mg PO BID 08/01/25 08/09/25 History dapagliflozin propanediol 5 mg 5 mg PO DAILY 08/01/25 08/09/25 History tablet (Farxiga) telmisartan 80 mg tablet 80 mg PO DAILY 08/01/25 08/09/25 History Patient hx anesthesia problems: none Family hx anesthesia problems: none Results Review: All pre-operative results and documents have been reviewed as part of the pre-operative evaluation. [facility] Past Medical History Medical History (Updated 08/30/19 @ 09:07 by Micheal Boogie, ) Hypertension Family History Family History (Updated 05/13/21 @ 11:34 by Celeste Mitchell RN) Father Hyperlipemia Hypertension Coronary artery disease Acute myocardial infarction Mother Non-Hodgkin lymphoma Social History Social History Smoking packs per day: 0.5 Smoking cigarettes per day: 10.0 Years smoked: 20 Smoking pack-years: 10.00 Smoking status: Former smoker Tobacco type: cigarettes Smoking end date: 03/07/21 Alcohol intake: former Alcohol use details: 1 per month Substance use: never Substance use type: does not use Living arrangements: with family Spiritual care concerns: No Anes - Eval Final PreProcedure Day of Procedure 08/09/25 12:27 Patient weight: obese Heart: regular rate and rhythm Lungs: clear to auscultation Airway: Mallampati scale class II Neurological: alert and oriented Last oral intake: >/= 8 hours ASA classification: III Emergent: no Anesthetic plan: proceed Anesthesia type and monitoring: general GIVS and standard monitoring Results Review: All pre-operative results and documents have been reviewed as part of the pre-operative evaluation. Informed Consent: The patient's anesthetic plan and its attendant risks and benefits were discussed with the patient/family/POA. Questions were solicited and answers provided to the satisfaction of the patient/family/POA.
--- NOTE | 2025-08-09 12:52 | PM.HPGS ---
History of Present Illness History of Present Illness Consent: Risks, benefits, and alternatives have been discussed and questions answered. Patient agrees to proceed with procedure. Chief complaint: Polyp of colon Narrative: Yessenia Pereira is a 65 year old male with history of colon polyps, last colonoscopy 2019 Review of Systems Review of Systems: All systems reviewed & are unremarkable except as noted in HPI and below PMFSH Past Medical History Medical History (Updated 08/09/25 @ 12:53 by Lam Dunaway MD) Colon polyp Hypertension Family History Family History (Updated 05/13/21 @ 11:34 by Celeste Mitchell RN) Father Hyperlipemia Hypertension Coronary artery disease Acute myocardial infarction Mother Non-Hodgkin lymphoma Social History Social History Smoking packs per day: 0.5 Smoking cigarettes per day: 10.0 Years smoked: 20 Smoking pack-years: 10.00 Smoking status: Former smoker Tobacco type: cigarettes Smoking end date: 03/07/21 Alcohol intake: former Alcohol use details: 1 per month Substance use: never Substance use type: does not use Living arrangements: with family Spiritual care concerns: No Meds Home Medications and Allergies Home Medications ?Medication ?Instructions ?Recorded ?Confirmed ?Type levofloxacin 500 mg tablet 250 mg PO DAILY 08/25/19 08/09/25 History aspirin 81 mg tablet 81 mg PO DAILY 05/13/21 08/09/25 History atorvastatin 80 mg tablet 80 mg PO HS 05/13/21 08/09/25 History lisinopril 20 mg tablet 40 mg PO DAILY 05/13/21 08/01/25 History metoprolol tartrate 25 mg tablet 25 mg PO DAILY 05/13/21 08/01/25 History ticagrelor 90 mg tablet 90 mg PO Q12H 05/13/21 08/01/25 History amlodipine 5 mg tablet 5 mg PO DAILY 08/01/25 08/09/25 History carvedilol 12.5 mg tablet 12.5 mg PO BID 08/01/25 08/09/25 History dapagliflozin propanediol 5 mg 5 mg PO DAILY 08/01/25 08/09/25 History tablet (Farxiga) telmisartan 80 mg tablet 80 mg PO DAILY 08/01/25 08/09/25 History Allergies Allergy/AdvReac Type Severity Reaction Status Date / Time No Known Allergies Allergy Verified 08/09/25 12:09 Vital Signs Vital Signs - 24 hr 08/09/25 12:10 Temperature 97.5 F L Pulse Rate 77 Respiratory Rate 16 Blood Pressure 142/95 H Pulse Oximetry 100 Oxygen Delivery Room Air Exam Const: General: comfortable and no acute distress HENMT: Face/Nose/Sinus: Normal nares present Eyes: General: appearance normal, both eyes and all related structures Neck: Neck: no JVD Resp: Auscultation: clear to auscultation bilaterally Cardio: Rate: regular rate Rhythm: regular rhythm GI: Inspection: non-distended GI Palp: Yes Soft to palpation Skin: General skin exam: normal color Extrem: General: normal to inspection Psych: Mental Status: mental status grossly normal Assessment and Plan Assessment and plan (1) Colon polyp: Code(s): K63.5 - Polyp of colon Status: Acute Assessment and Plan: colonoscopy
--- NOTE | 2025-08-09 13:04 | S_PTH ---
PATIENT: Yessenia Pereira LOC: [facility]#:[id number] AGE/SX: 65/M ROOM: RE08/09/[address]: Lam Dunaway MD : 1960 BED: DIS: 08/09/2025 SPEC #: [id number] RECD: 08/09/25 13:26 STATUS: AMADA RESaleem #: [id number] JT: 08/09/25 13:[address]: Lam Dunaway DEPT: [facility] RECD BY: Rosa Murray ENTERED: 08/09/25 13:26 SP TYPE: Surgical OTHR DR: Alejandro BuckleyMD Tissues: A - Colon Polypectomy Procedures: Hematoxylin and Eosin Stain Gross and Microscopic Level 4
[2025-08-09 13:05] VITALS: BP 122/81; PULSE 89; RESP 15; O2SAT 96
[2025-08-09 13:15] VITALS: BP 113/48; PULSE 96; RESP 19; O2SAT 96
[2025-08-09 13:25] VITALS: BP 120/72; PULSE 92; RESP 20; O2SAT 99
== END 2025-08-09 13:44 | disposition home or self-care (01) ==
PROVIDERS: PCP Internal Medicine; Referring Provider Internal Medicine; Visit Provider Internal Medicine Gastroenterology
PROC: 0DJD8ZZ Inspection of Lower Intestinal Tract, Via Natural or Artificial Opening Endoscopic (ICD-10-PCS; CPT 45378; principal; 2025-08-09 13:00)
DX: Z12.11 Encounter for screening for malignant neoplasm of colon (principal); D12.2 Benign neoplasm of ascending colon; K64.8 Other hemorrhoids; K57.30 Diverticulosis of large intestine without perforation or abscess without bleeding; I10 Essential (primary) hypertension; E66.9 Obesity, unspecified; Z68.33 Body mass index [BMI] 33.0-33.9, adult; Z79.02 Long term (current) use of antithrombotics/antiplatelets; Z79.84 Long term (current) use of oral hypoglycemic drugs; Z79.82 Long term (current) use of aspirin; Z87.891 Personal history of nicotine dependence; Z80.7 Family history of other malignant neoplasms of lymphoid, hematopoietic and related tissues; Z82.49 Family history of ischemic heart disease and other diseases of the circulatory system
CPT/HCPCS: 45385; 82948; 88305; 93005; J2704; J7120